=== PATIENT | male | born 1990 | race Caucasian/White ===

== ENCOUNTER 2016-07-14 10:59 | Inpatient (IN) | payer BC, OTHER ==
[2016-07-14] MEDS ORDERED: LORazepam TAB(*) 1 MG PO ONE (11:48)
[2016-07-14 12:02] LABS: Hematocrit 43 % (42-52); Hemoglobin 13.8 g/dl (14.0-18.0); Mean Corpuscular HGB Conc 33 g/dl (31-36); Mean Corpuscular Hemoglobin 28 pg (27-31); Mean Corpuscular Volume 86 fL (80-94); Mean Platelet Volume 9 um3 (7.4-10.4); Red Blood Count 4.96 10^6/ul (4.0-5.4); Red Cell Distribution Width 13 % (10.5-15); White Blood Count 9.2 10^3/ul (3.5-10.8)
[2016-07-14 12:05] LABS: Urine Bilirubin Negative (Negative); Urine Glucose Negative (Negative); Urine Nitrite Negative (Negative)
[2016-07-14 12:22] LABS: ALT 19 U/L (7-52); AST 15 U/L (13-39); Albumin 4.3 g/dL (3.2-5.2); Alkaline Phosphatase 69 U/L (34-104); Anion Gap 5 mmol/L (2-11); BUN/Creatinine Ratio 10.5 (8-20); Blood Urea Nitrogen 8 mg/dL (6-24); CO2 Carbon Dioxide 31 mmol/L (22-32); Calcium 10.1 mg/dL (8.6-10.3); Chloride 101 mmol/L (101-111); EGFR African American 162.1 (>60); Globulin 3.4 g/dL (2-4); Glucose 102 mg/dL (70-100); Potassium 4.2 mmol/L (3.5-5.0); Sodium 137 mmol/L (133-145); Total Protein 7.7 g/dL (6.4-8.9)
[2016-07-14 12:24] LABS: Benzodiazepine Urine Screen None Detected (None Detect)
[2016-07-14 12:28] LABS: Acetaminophen < 15 mcg/mL; Alcohol < 10 mg/dL (<10); Salicylate < 2.50 mg/dL (<30)
[2016-07-14 12:33] LABS: TSH (Thyroid Stimulating Horm) 1.93 mcIU/mL (0.34-5.60)
[2016-07-14] MEDS ORDERED: Acetaminophen TAB* 325 MG PO PRN (17:24)
[2016-07-14] MEDS ORDERED: Al Hydrox/Mg Hydrox/Simet LIQ* 30 ML UDC PO PRN (17:24)
[2016-07-14] MEDS ORDERED: Nicotine GUM* 2 MG ONE (19:58)
[2016-07-14] MEDS: Nicotine GUM* 2 MG PO PRN (20:30)
[2016-07-14] MEDS: Divalproex ER TAB(*) 500 MG PO SCH (21:05)
[2016-07-15] MEDS: Vitamin THERAPEUTIC TAB PO SCH (09:10)
[2016-07-15] MEDS: Methylphenidate TAB* 10 MG PO SCH ×2 (09:11→15:02)
--- NOTE | 2016-07-15 14:09 | PN ---
MHU: Group Therapy Note - Service Type Service Type: 43100 Group Psychotherapy - Cognitive Behavioral Group Therapy ( CBT):Patient was attentive and participatory in CBT programming this morning, and remained in good behavioral control. Patient expressed positive insights regarding relevant treatment interventions and goals.
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
[2016-07-15] MEDS: QUEtiapine TAB* 25 MG PO PRN ×2 (16:38→20:52)
[2016-07-15] MEDS: Divalproex ER TAB(*) 500 MG PO SCH (20:51)
[2016-07-16] MEDS: Methylphenidate ER TAB* 18 MG PO SCH (08:00)
[2016-07-16] MEDS: Vitamin THERAPEUTIC TAB PO SCH (08:01)
[2016-07-16] MEDS: Nicotine Inhaler* 10 MG AMP INH PRN (10:19)
[2016-07-16] MEDS: Methylphenidate TAB* 10 MG PO SCH (12:00)
[2016-07-16] MEDS: Divalproex ER TAB(*) 500 MG PO SCH (20:14)
[2016-07-16] MEDS: QUEtiapine TAB* 25 MG PO PRN (20:14)
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
[2016-07-17] MEDS ORDERED: Mouth Piece, Nicotine* 1 EACH CARTRIDGE ONE (08:36)
[2016-07-17] MEDS: Methylphenidate ER TAB* 18 MG PO SCH (08:38)
[2016-07-17] MEDS: Vitamin THERAPEUTIC TAB PO SCH (08:39)
[2016-07-17] MEDS: Methylphenidate TAB* 10 MG PO SCH (12:00)
[2016-07-17] MEDS: Nicotine Inhaler* 10 MG AMP INH PRN ×2 (15:58→20:17)
--- NOTE | 2016-07-17 16:29 | ED ---
Jennifer Bertrand Anna, scribed for Chad Raman MD on 07/14/16 at 1129 . Psychiatric Complaint - HPI Summary HPI Summary: Patient is a 25 y/o male coming to [facility] presenting with gradual onset of a constant inability to stay still. He reports that his medication is not working and that he feels as if he has excess energy. He has been taking the same medication since middle school and feels it does not alleviate his symptoms. He denies a recent illness, including cold symptoms. He quit smoking marijuana six days ago. - History Of Current Complaint Chief Complaint: EDMentalHealth Hx Obtained From: Patient Onset/Duration: Gradual Onset, Still Present Timing: Constant Severity Initially: Moderate Severity Currently: Moderate - Allergies/Home Medications Allergies/Adverse Reactions: Allergies Allergy/AdvReac Type Severity Reaction Status Date / Time No Known Allergies Allergy Verified 01/16/14 10:31 Home Medications: Home Medications Divalproex ER TAB(*) [Depakote ER TAB(*)] 500 mg PO BEDTIME 07/14/16 [History Confirmed 07/14/16] PMH/Surg Hx/FS Hx/Imm Hx Neurological History: Denies: Hx CVA Psychiatric History: Reports: Hx Attention Deficit Hyperactivity Disorder, Other Psychiatric Issues/Disorders - Bipolar disorder Denies: Hx Eating Disorder, Hx of Violent Episodes Against Others Infectious Disease History: No Infectious Disease History: Denies: Traveled Outside the [place] in Last 30 Days - Family History Known Family History: Negative: Diabetes - Social History Alcohol Use: None Alcohol Amount: once per week, approximately Hx Substance Use: Yes Substance Use Type: Reports: Marijuana Substance Use Comment - Amount & Last Used: Quit six days ago Smoking Status (MU): Never Smoked Tobacco Review of Systems ENT: Negative Respiratory: Negative Psychological: Other - Inability to stay still, excess energy All Other Systems Reviewed And Are Negative: Yes Physical Exam Triage Information Reviewed: Yes Vital Signs On Initial Exam: Initial Vitals Temp Pulse Resp BP Pulse Ox 97.7 F 104 20 152/92 99 07/14/16 11:02 07/14/16 11:02 07/14/16 11:02 07/14/16 11:02 07/14/16 11:02 Vital Signs Reviewed: Yes Appearance: Positive: Well-Appearing, No Pain Distress Skin: Positive: Warm, Skin Color Reflects Adequate Perfusion, Dry Head/Face: Positive: Normal Head/Face Inspection Eyes: Positive: Normal ENT: Positive: Normal ENT inspection Neck: Positive: Supple, Nontender Respiratory/Lung Sounds: Positive: Clear to Auscultation, Breath Sounds Present Cardiovascular: Positive: RRR Abdomen Description: Positive: Nontender, Soft Bowel Sounds: Positive: Present Musculoskeletal: Positive: Normal Neurological: Positive: Normal Psychiatric: Positive: Affect/Mood Appropriate Diagnostics - Vital Signs Vital Signs Temp Pulse Resp BP Pulse Ox 07/14/16 11:02 97.7 F 104 20 152/92 99 - Laboratory Lab Results: Lab Results 07/14/16 07/14/16 07/14/16 Range/Units 11:29 11:48 11:48 WBC 9.2 (3.5-10.8) 10^3/ul RBC 4.96 (4.0-5.4) 10^6/ul Hgb 13.8 L (14.0-18.0) g/dl Hct 43 (42-52) % MCV 86 (80-94) fL MCH 28 (27-31) pg MCHC 33 (31-36) g/dl RDW 13 (10.5-15) % Plt Count 233 (150-450) 10^3/ul MPV 9 (7.4-10.4) um3 Neut % (Auto) 71.3 (38-83) % Lymph % (Auto) 15.9 L (25-47) % [place] % (Auto) 7.8 (1-9) % Eos % (Auto) 2.8 (0-6) % Baso % (Auto) 2.2 H (0-2) % Absolute Neuts (auto) 6.5 (1.5-7.7) 10^3/ul Absolute Lymphs (auto) 1.5 (1.0-4.8) 10^3/ul Absolute Monos (auto) 0.7 (0-0.8) 10^3/ul Absolute Eos (auto) 0.3 (0-0.6) 10^3/ul Absolute Basos (auto) 0.2 (0-0.2) 10^3/ul Absolute Nucleated RBC 0.01 10^3/ul Nucleated RBC % 0.1 Sodium 137 (133-145) mmol/L Potassium 4.2 (3.5-5.0) mmol/L Chloride 101 (101-111) mmol/L Carbon Dioxide 31 (22-32) mmol/L Anion Gap 5 (2-11) mmol/L BUN 8 (6-24) mg/dL Creatinine 0.76 (0.67-1.17) mg/dL Est GFR ( Amer) 162.1 (>60) Est GFR (Non-Af Amer) 126.0 (>60) BUN/Creatinine Ratio 10.5 (8-20) Glucose 102 H (70-100) mg/dL Calcium 10.1 (8.6-10.3) mg/dL Total Bilirubin 0.40 (0.2-1.0) mg/dL AST 15 (13-39) U/L ALT 19 (7-52) U/L Alkaline Phosphatase 69 (34-104) U/L Total Protein 7.7 (6.4-8.9) g/dL Albumin 4.3 (3.2-5.2) g/dL Globulin 3.4 (2-4) g/dL Albumin/Globulin Ratio 1.3 (1-3) TSH 1.93 (0.34-5.60) mcIU/mL Urine Color Straw Urine Appearance Clear Urine pH 7.0 (5-9) Ur Specific [place] 1.003 L (1.010-1.030) Urine Protein Negative (Negative) Urine Ketones Negative (Negative) Urine Blood Negative (Negative) Urine Nitrate Negative (Negative) Urine Bilirubin Negative (Negative) Urine Urobilinogen Negative (Negative) Ur Leukocyte Esterase Negative (Negative) Urine Glucose Negative (Negative) Salicylates < 2.50 (<30) mg/dL Urine Opiates Screen (None Detect) Acetaminophen < 15 mcg/mL Ur Barbiturates Screen (None Detect) Ur Phencyclidine Scrn (None Detect) Ur Amphetamines Screen (None Detect) U Benzodiazepines Scrn (None Detect) Urine Cocaine Screen (None Detect) U Cannabinoids Screen (None Detect) Serum Alcohol < 10 (<10) mg/dL 07/14/16 Range/Units 11:48 WBC (3.5-10.8) 10^3/ul RBC (4.0-5.4) 10^6/ul Hgb (14.0-18.0) g/dl Hct (42-52) % MCV (80-94) fL MCH (27-31) pg MCHC (31-36) g/dl RDW (10.5-15) % Plt Count (150-450) 10^3/ul MPV (7.4-10.4) um3 Neut % (Auto) (38-83) % Lymph % (Auto) (25-47) % [place] % (Auto) (1-9) % Eos % (Auto) (0-6) % Baso % (Auto) (0-2) % Absolute Neuts (auto) (1.5-7.7) 10^3/ul Absolute Lymphs (auto) (1.0-4.8) 10^3/ul Absolute Monos (auto) (0-0.8) 10^3/ul Absolute Eos (auto) (0-0.6) 10^3/ul Absolute Basos (auto) (0-0.2) 10^3/ul Absolute Nucleated RBC 10^3/ul Nucleated RBC % Sodium (133-145) mmol/L Potassium (3.5-5.0) mmol/L Chloride (101-111) mmol/L Carbon Dioxide (22-32) mmol/L Anion Gap (2-11) mmol/L BUN (6-24) mg/dL Creatinine (0.67-1.17) mg/dL Est GFR ( Amer) (>60) Est GFR (Non-Af Amer) (>60) BUN/Creatinine Ratio (8-20) Glucose (70-100) mg/dL Calcium (8.6-10.3) mg/dL Total Bilirubin (0.2-1.0) mg/dL AST (13-39) U/L ALT (7-52) U/L Alkaline Phosphatase (34-104) U/L Total Protein (6.4-8.9) g/dL Albumin (3.2-5.2) g/dL Globulin (2-4) g/dL Albumin/Globulin Ratio (1-3) TSH (0.34-5.60) mcIU/mL Urine Color Urine Appearance Urine pH (5-9) Ur Specific Trent (1.010-1.030) Urine Protein (Negative) Urine Ketones (Negative) Urine Blood (Negative) Urine Nitrate (Negative) Urine Bilirubin (Negative) Urine Urobilinogen (Negative) Ur Leukocyte Esterase (Negative) Urine Glucose (Negative) Salicylates (<30) mg/dL Urine Opiates Screen None detected (None Detect) Acetaminophen mcg/mL Ur Barbiturates Screen None detected (None Detect) Ur Phencyclidine Scrn None detected (None Detect) Ur Amphetamines Screen None detected (None Detect) U Benzodiazepines Scrn None detected (None Detect) Urine Cocaine Screen None detected (None Detect) U Cannabinoids Screen Presumptive positive H (None Detect) Serum Alcohol (<10) mg/dL Result Diagrams: 07/14/16 11:48 07/14/16 11:48 Lab Statement: Any lab studies that have been ordered have been reviewed, and results considered in the medical decision making process. Course/Dx - Course Course Of Treatment: Pt is medically cleared for MHU Evaluation at 1128. - Differential Dx/Clinical Impression Provider Diagnosis: Bipolar 1 disorder, manic, mild Discharge - Discharge Plan Condition: Stable Disposition: ADMITTED TO [facility] documentation as recorded by the Jennifer lópez Anna accurately reflects the service I personally performed and the decisions made by , Chad Raman MD.
[2016-07-17] MEDS: Divalproex ER TAB(*) 500 MG PO SCH (20:16)
[2016-07-18] MEDS: Methylphenidate ER TAB* 18 MG PO SCH (07:53)
[2016-07-18] MEDS: Vitamin THERAPEUTIC TAB PO SCH (07:53)
[2016-07-18] MEDS: Nicotine Inhaler* 10 MG AMP INH PRN ×2 (07:54→14:39)
--- NOTE | 2016-07-18 08:46 | PN ---
Subjective - Subjective Service Type: 51723 Hosp care 15 min low complexity Subjective: Oliver was cheerful, he said he expects to get along okay with his mother, but says he has not been in touch with her. He agreed with our involving her in discharge planning. He remains interested in higher dose Concerta - I explained that with his Ritalin dose he will be at the high end of dosages, and he agreed not to take the medicine in higher amounts than directed. He was interested in going home this week and agrees with psychiatric aftercare. Objective - Appearance Appearance: Well Developed/Nourished Hygiene: Normal Grooming: Well Kept - Behavior Psychomotor Activities: Normal - Attitude and Relatedness Attitude and Relatedness: Child Like Eye Contact: Good - Speech Quality: Unpressured Latencies: Normal Quantity: Terse - Mood Patient's Decription of Mood: "Great" - Affect Observed Affect: Non-labile Affect Consistent with: Euthymia - Thought Process Patient's Thought Process: Coherent, Goal Directed, Impoverished Thought Content: No Passive Wish, No Suicidal Planning, No Homicidal Ideation, No Paranoid Ideation - Sensorium Experiencing Hallucinations: No, Sensorium is Clear - Level of Consciousness Level of Consciousness: Alert - Impulse Control Impulse Control: Poor - Insight and Judgement Insight and Judgement: Poor Assessment - Assessment Merits Inpatient Hospitalization: To Initiate Treatment, For Ongoing Evaluation , Consolidate Improvements, For Discharge Planning Inpatient DSM-IV Dx: Intellectual disability. ADHD. Bipolar by hx. Clinical Impression: 25 y/o male with prior psychiatric hospitalizations, intellectual disability, Bipolar and ADHD diagnoses, suicidal behavior, and periodic agitation and aggression. He was admitted after being brought to the ED by law enforcement, due to concern over aggressive behavior at home, and on evaluation, he endorsed homicidal ideation. Oliver stabilized rapidly here. Continues at low distress levels, safe on checks, calm and in behavioral control. Medmgt continues his outpatient regimen of Depakote, Concerta, Ritalin. We titrated Depakote higher (750mg), and now Concerta too (54mg to 72mg). Oliver is at the high end of methylphanidate doseing but with his comorbidity he may need above average doses. Given status, expect discharge this week, involving mother in discharge planning. Plan - Plan Treatment Plan: Name: OLIVER POPE Birthdate: 1990 [id number] Continued Medication Management: Continue Outpt Medication Medications: Current Medications Acetaminophen (Tylenol Tab*) 650 mg PO Q4H PRN PRN Reason: for pain; or Temp >101 F Al Hydrox/Mg Hydrox/Simethicone (Maalox Plus*) 30 ml PO Q4H PRN PRN Reason: INDIGESTION Divalproex Sodium (Depakote Er Tab(*)) 500 mg PO BEDTIME [facility] Last Admin: 07/17/16 20:16 Dose: 500 mg Methylphenidate HCl (Concerta Er Tab*) 54 mg PO DAILY [facility] Last Admin: 07/18/16 07:53 Dose: 54 mg Methylphenidate HCl (Ritalin Tab*) 10 mg PO 1200 [facility] Last Admin: 07/17/16 12:00 Dose: 10 mg Multivitamins (Theragran Tab*) 1 tab PO DAILY [facility] Last Admin: 07/18/16 07:53 Dose: 1 tab Nicotine (Nicotine Inhaler*) 10 mg INH Q2H PRN PRN Reason: CRAVING Last Admin: 07/18/16 07:54 Dose: 10 mg Nicotine Polacrilex (Nicotine Gum*) 2 mg PO Q2H PRN PRN Reason: CRAVINGS Last Admin: 07/14/16 20:30 Dose: 2 mg Quetiapine Fumarate (Seroquel Tab*) 25 mg PO Q4H PRN PRN Reason: AGITATION/ANXIETY Last Admin: 07/16/16 20:14 Dose: 25 mg - Discharge Plan Discharge Plan: Outpatient Follow Up
[2016-07-18] MEDS: Methylphenidate TAB* 10 MG PO SCH (14:40)
[2016-07-18] MEDS: Divalproex ER TAB(*) 500 MG PO SCH (20:50)
[2016-07-19] MEDS: Vitamin THERAPEUTIC TAB PO SCH (08:31)
[2016-07-19] MEDS: Methylphenidate ER TAB* 18 MG PO SCH (08:31)
[2016-07-19] MEDS: Nicotine Inhaler* 10 MG AMP INH PRN ×5 (10:05→20:30)
--- NOTE | 2016-07-19 10:45 | PN ---
Progress Note - Progress Note Note: R middle finger Xray result: no fracture, Marana neck deformity no acute intervention needed.
--- NOTE | 2016-07-19 11:14 | PN ---
MHU: Group Therapy Note - Service Type Service Type: 16302 Group Psychotherapy - Cognitive Behavioral Group Therapy ( CBT):Patient was attentive and participatory in CBT programming this morning, and remained in good behavioral control. Patient expressed positive insights regarding relevant treatment interventions and goals.
[2016-07-19] MEDS ORDERED: Divalproex DR TAB(*) 250 MG PO ONE (11:31)
--- NOTE | 2016-07-19 11:34 | PN ---
Subjective - Subjective Service Type: 72097 Hosp care 15 min low complexity Subjective: Oliver was cheerful, had no complaints and reported "doing great." He agrees with Depakote increase. He reported good conversations with his mom. He accepted recommendation to avoid cannabis and said he would. Objective - Appearance Appearance: Healthy Appearing Hygiene: Normal Grooming: Well Kept - Behavior Psychomotor Activities: Normal - Attitude and Relatedness Attitude and Relatedness: Child Like Eye Contact: Good - Speech Quality: Unpressured Latencies: Normal Quantity: Appropriate - Mood Patient's Decription of Mood: "Great" - Affect Observed Affect: Non-labile Affect Consistent with: Euthymia - Thought Process Patient's Thought Process: Coherent, Impoverished Thought Content: No Passive Wish, No Suicidal Planning, No Homicidal Ideation, No Paranoid Ideation - Sensorium Experiencing Hallucinations: No, Sensorium is Clear - Level of Consciousness Level of Consciousness: Alert - Impulse Control Impulse Control: Intact - Insight and Judgement Insight and Judgement: Poor Assessment - Assessment Inpatient DSM-IV Dx: Intellectual disability. ADHD. Bipolar by hx. Clinical Impression: 25 y/o male with prior psychiatric hospitalizations, intellectual disability, Bipolar and ADHD diagnoses, suicidal behavior, and periodic agitation and aggression. He was admitted after being brought to the ED by law enforcement, due to concern over aggressive behavior at home, and on evaluation, he endorsed homicidal ideation. Oliver stabilized rapidly here. Continues at low distress levels, safe on checks, calm and in behavioral control. Impulse control is intact here. Medmgt continues his outpatient regimen of Depakote, Concerta, Ritalin. We are titrating Depakote higher (to 750mg), and Concerta too (54mg to 72mg). Oliver is at the high end of methylphanidate doseing but with his comorbidity he may need above average doses. Given status, expect discharge this week, involving mother in discharge planning. Plan - Plan Treatment Plan: Name: OLIVER POPE Birthdate: 1990 [id number] Medications: Current Medications Acetaminophen (Tylenol Tab*) 650 mg PO Q4H PRN PRN Reason: for pain; or Temp >101 F Al Hydrox/Mg Hydrox/Simethicone (Maalox Plus*) 30 ml PO Q4H PRN PRN Reason: INDIGESTION Divalproex Sodium (Depakote Dr Tab(*)) 250 mg PO ONCE ONE Stop: 07/19/16 11:32 Divalproex Sodium (Depakote Er Tab(*)) 750 mg PO BEDTIME [facility] Methylphenidate HCl (Concerta Er Tab*) 54 mg PO DAILY [facility] Last Admin: 07/19/16 08:31 Dose: 54 mg Methylphenidate HCl (Ritalin Tab*) 10 mg PO 1200 [facility] Last Admin: 07/18/16 14:40 Dose: 10 mg Multivitamins (Theragran Tab*) 1 tab PO DAILY [facility] Last Admin: 07/19/16 08:31 Dose: 1 tab Nicotine (Nicotine Inhaler*) 10 mg INH Q2H PRN PRN Reason: CRAVING Last Admin: 07/19/16 10:05 Dose: 10 mg Nicotine Polacrilex (Nicotine Gum*) 2 mg PO Q2H PRN PRN Reason: CRAVINGS Last Admin: 07/14/16 20:30 Dose: 2 mg Quetiapine Fumarate (Seroquel Tab*) 25 mg PO Q4H PRN PRN Reason: AGITATION/ANXIETY Last Admin: 07/16/16 20:14 Dose: 25 mg
[2016-07-19] MEDS: Methylphenidate TAB* 10 MG PO SCH (12:35)
[2016-07-19] MEDS: Nicotine GUM* 2 MG PO PRN ×2 (18:35→20:29)
[2016-07-19] MEDS: Divalproex ER TAB(*) 250 MG PO SCH (20:27)
[2016-07-20] MEDS: Nicotine GUM* 2 MG PO PRN ×5 (08:21→20:17)
[2016-07-20] MEDS: Nicotine Inhaler* 10 MG AMP INH PRN ×6 (08:21→23:25)
[2016-07-20] MEDS: Vitamin THERAPEUTIC TAB PO SCH (08:22)
[2016-07-20] MEDS: Methylphenidate ER TAB* 18 MG PO SCH (08:22)
--- NOTE | 2016-07-20 11:56 | PN ---
[facility]: Group Therapy Note - Service Type Service Type: 15644 Group Psychotherapy - Cognitive Behavioral Group Therapy ( CBT):Patient was attentive and participatory in CBT programming this morning, and remained in good behavioral control. Patient expressed positive insights regarding relevant treatment interventions and goals.
[2016-07-20] MEDS: Methylphenidate TAB* 10 MG PO SCH (12:11)
--- NOTE | 2016-07-20 16:29 | PN ---
Subjective - Subjective Service Type: 89125 Hosp care 15 min low complexity Subjective: Oliver reports doing well here, with no dangerous intent or plan, and no active psychotic symptoms. He has been in good behavioral control here. He is pleasant and collaborative and agreeable to discharge Monday assuming all agree at a family meeting that he is restabilized and safe for discharge. Objective - Appearance Appearance: Healthy Appearing Dysmorphic Features: No Hygiene: Normal Grooming: Well Kept - Behavior Psychomotor Activities: Normal Exhibits Abnormal Movement: No - Attitude and Relatedness Attitude and Relatedness: Well Related Eye Contact: Good - Speech Quality: Unpressured Latencies: Normal Quantity: Appropriate - Mood Patient's Decription of Mood: "Good" - Affect Observed Affect: Good Affect Consistent with: Euthymia - Thought Process Patient's Thought Process: Coherent, Goal Directed Thought Content: No Passive Wish, No Suicidal Planning, No Homicidal Ideation, No Paranoid Ideation - Sensorium Experiencing Hallucinations: No, Sensorium is Clear Type of Hallucinations: Visual: No, Auditory: No, Command: No - Level of Consciousness Level of Consciousness: Alert Orientation: Yes Intact, Yes Orientated to Time, Yes Orientated to Place, Yes Orientated to Person - Impulse Control Impulse Control: Intact - Insight and Judgement Insight and Judgement: Fair - Group Participation Particating in Group Activities: Yes - Medication Management Medication Management Adherence: Yes Assessment - Assessment Merits Inpatient Hospitalization: For Stabilization, Consolidate Improvements, For Discharge Planning Inpatient DSM-IV Dx: Intellectual disability. ADHD. Bipolar by hx. Clinical Impression: Oliver is a 25 year-old single white male admitted for an episode of severe agitation. He has since admission been in good behavioral control. We are planning a family meeting on Monday, with discharge following that meeting assuming no surprises before then. Plan - Plan Treatment Plan: Name: OLIVER POPE Birthdate: 1990 [id number] Continue current meds. Monitor MS and safety. Encourage groups, milieu. Plan toward discharge Monday. Medications: Current Medications Acetaminophen (Tylenol Tab*) 650 mg PO Q4H PRN PRN Reason: for pain; or Temp >101 F Al Hydrox/Mg Hydrox/Simethicone (Maalox Plus*) 30 ml PO Q4H PRN PRN Reason: INDIGESTION Divalproex Sodium (Depakote Er Tab(*)) 750 mg PO BEDTIME [facility] Last Admin: 07/19/16 20:27 Dose: 750 mg Methylphenidate HCl (Ritalin Tab*) 10 mg PO 1200 [facility] Last Admin: 07/20/16 12:11 Dose: 10 mg Methylphenidate HCl (Concerta Er Tab*) 72 mg PO DAILY [facility] Last Admin: 07/20/16 08:22 Dose: 72 mg Multivitamins (Theragran Tab*) 1 tab PO DAILY [facility] Last Admin: 07/20/16 08:22 Dose: 1 tab Nicotine (Nicotine Inhaler*) 10 mg INH Q2H PRN PRN Reason: CRAVING Last Admin: 07/20/16 15:41 Dose: 10 mg Nicotine Polacrilex (Nicotine Gum*) 2 mg PO Q2H PRN PRN Reason: CRAVINGS Last Admin: 07/20/16 15:42 Dose: 2 mg Quetiapine Fumarate (Seroquel Tab*) 25 mg PO Q4H PRN PRN Reason: AGITATION/ANXIETY Last Admin: 07/16/16 20:14 Dose: 25 mg - Discharge Plan Discharge Plan: Outpatient Follow Up
[2016-07-20] MEDS: Divalproex ER TAB(*) 250 MG PO SCH (20:17)
[2016-07-21] MEDS: Vitamin THERAPEUTIC TAB PO SCH (08:38)
[2016-07-21] MEDS: Methylphenidate ER TAB* 18 MG PO SCH (08:38)
[2016-07-21] MEDS: Nicotine Inhaler* 10 MG AMP INH PRN ×3 (08:39→19:53)
[2016-07-21] MEDS: Nicotine GUM* 2 MG PO PRN ×3 (08:39→19:53)
[2016-07-21] MEDS: Methylphenidate TAB* 10 MG PO SCH (12:52)
[2016-07-21] MEDS: Divalproex ER TAB(*) 250 MG PO SCH (19:52)
[2016-07-22] MEDS: Vitamin THERAPEUTIC TAB PO SCH (08:22)
[2016-07-22] MEDS: Nicotine Inhaler* 10 MG AMP INH PRN (08:23)
[2016-07-22] MEDS: Methylphenidate ER TAB* 18 MG PO SCH (08:23)
[2016-07-22 08:38] LABS: Mean Platelet Volume 9 um3 (7.4-10.4)
[2016-07-22 08:48] VITALS: BP 106/58
--- NOTE | 2016-07-22 09:36 | DS ---
Subjective - Subjective Service Types: 25073 [facility] Day Mgmt simple under 30 min Discharge Date: 07/22/16 Subjective: Jorje continues to report feeling safe and ready for discharge today. He has no physical complaints. His parents' only concerns in the discharge family meeting was risk of recurrence. Per their and Jorje's report, so long as he takes his medications, he does not have these outbursts. There had been difficulties with getting medications at [facility], they say , because the clinic had been in transition between psychiatrists. Jorje's parents reported feeling good about their son coming home with them in his current frame of mind, which is calm and pleasantly collaborative. Objective - Appearance Appearance: Healthy Appearing Dysmorphic Features: No Hygiene: Normal Grooming: Fairly Well Kept - Behavior Psychomotor Activities: Normal Exhibits Abnormal Movement: No - Attitude and Relatedness Attitude and Relatedness: Well Related Eye Contact: Good - Speech Quality: Unpressured Latencies: Normal Quantity: Appropriate - Mood Patient's Decription of Mood: "Good" - Affect Observed Affect: Good Affect Consistent with: Euthymia - Thought Process Patient's Thought Process: Coherent, Goal Directed Thought Content: No Passive Wish, No Suicidal Planning, No Homicidal Ideation, No Paranoid Ideation - Sensorium Experiencing Hallucinations: No, Sensorium is Clear Type of Hallucinations: Visual: No, Auditory: No, Command: No - Level of Consciousness Level of Consciousness: Alert Orientation: Yes Intact, Yes Orientated to Time, Yes Orientated to Place, Yes Orientated to Person - Impulse Control Impulse Control: Intact - Insight and Judgement Insight and Judgement: Fair - Group Participation Particating in Group Activities: Yes - Medication Management Medication Management Adherence: Yes Treatment Course & Assessment Clinical Course & Impression: Jorje is a 25 year-old single white male admitted for an episode of severe agitation. He has since admission been in good behavioral control. We are planning a family meeting on Monday, with discharge following that meeting assuming no surprises before then. 07.22.16: Jorje is cleared for discharge. He is assessed as at no acutely increased risk of harm to self or others and capable of adequate self-care to avoid harm. He has been pleasant and collaborative throughout this hospitalization. We have increased his Depakote and his Concerta doses with good effect on his thought and behavior, most notably reduction of impulsivity to the point that none was seen during the course of this hospitalization. Valproic acid level on the day of discharge is 54, with ALT 20, AST 23, plt 253, MPV 9: all WNL. Jorje only used prn 25 mg Seroquel three times, so this medication will not be continued following discharge. All prescriptions were sent into the [facility] for a 30 day supply, including #180 of nicotine gum for smoking cessation. Merits Inpatient Hospitalization: No Clear for Discharge: Adequate Clinical Respons, Acceptable Safety Profile, Low Utility of Inpt Care Inpatient DSM-IV Dx: Intellectual disability. ADHD. Bipolar by hx. - [place] III Medical Illness: None - [place] Stressors: Vocational and financial limitations, conflicted relationship with parents at times. Family: Will return home with parents Primary Support Group: Parents - [place] V [id number]: 70 Estimate of Highest-Past Year: 70 Discharge Planning - Discharge Planning Discharge Plan: Outpatient Follow Up Outpatient Program: [facility] Recommendations for Continuing Care: Medication Management, Psychotherapy Medications: Divalproex Sodium (Depakote Er Tab(*)) 750 mg PO BEDTIME [facility] Last Admin: 07/21/16 19:52 Dose: 750 mg Methylphenidate HCl (Ritalin Tab*) 10 mg PO 1200 [facility] Last Admin: 07/21/16 12:52 Dose: 10 mg Methylphenidate HCl (Concerta Er Tab*) 72 mg PO DAILY [facility] Last Admin: 07/22/16 08:23 Dose: 72 mg Nicotine Polacrilex (Nicotine Gum*) 2 mg PO Q2H PRN PRN Reason: CRAVINGS Last Admin: 07/21/16 19:53 Dose: 2 mg Discharge Planning: Prescriptions provided for discharge [x] Yes [] No Follow up care details as per social work arrangements. Patient response to discharge plan: [x] eager for discharge [x] agreeable with discharge plan [] ambivalent about discharge [] disagrees with discharge today
== END 2016-07-22 10:45 | disposition home or self-care (01) | DRG 753 ==
LOC: ED 10:59 → BSU 17:25
PROVIDERS: ADMIT Psychiatry & Neurology Psychiatry; ATTEND Psychiatry & Neurology Psychiatry
PROC: GZHZZZZ Group Psychotherapy (ICD-10-PCS; principal; 2016-07-15)
PROC: GZ58ZZZ Individual Psychotherapy, Cognitive-Behavioral (ICD-10-PCS; 2016-07-15)
DX: F31.9 Bipolar disorder, unspecified (principal); F79 Unspecified intellectual disabilities; F17.210 Nicotine dependence, cigarettes, uncomplicated; F90.9 Attention-deficit hyperactivity disorder, unspecified type; R45.1 Restlessness and agitation; Z63.1 Problems in relationship with in-laws; Z59.9 Problem related to housing and economic circumstances, unspecified
CPT/HCPCS: 36415; 80053; 80164; 80307; 80320; 80329; 81003; 84443; 84450; 84460; 85025; 85049; 90853; 99222; 99231; 99238; A9270-GY; G0480